=== PATIENT | male | born 1965 | race Caucasian/White ===

== ENCOUNTER 2023-06-16 08:13 | Emergency (ER) | payer BC ==
[2023-06-16] VITALS (15 sets, daily range): BP systolic 117–139; BP diastolic 83–102
[~2023-06-16] VITALS: Ht 182.9 cm; Wt 82.5 kg
[2023-06-16] MEDS ORDERED: ENALAPRIL5 MG PO (08:57)
[2023-06-16] MEDS ORDERED: AMLODIPINE BESYL5 MG PO (08:58)
[2023-06-16] MEDS ORDERED: XANAX0.25 MG PO (08:59)
[2023-06-16] MEDS ORDERED: LORTAB 1010 MG PO (09:00)
[2023-06-16 09:45] LABS: BASO% 0.6 % (0-3); EOS% 1.5 % (0-8); HEMATOCRIT 47.3 % (39.0-50.0); HEMOGLOBIN 15.6 g/dl (14.0-18.0); LYMPH% 28.5 % (15-41); MEAN CORPUSCULAR HGB 29.7 pG CALC (26.0-32.0); MONO% 7.1 % (2-13); NEUT# 3.26 thou/uL (1.82-7.42); NEUT% 62.3 % (42-76); RED BLOOD COUNT 5.25 mill/uL (4.70-6.10)
[2023-06-16 09:52] LABS: MEAN CELL VOLUME 90.1 fL CALC (80.0-100.0)
[2023-06-16 10:00] LABS: ALBUMIN 4.5 g/dL (3.2-5.0); ALKALINE PHOSPHATASE 64 u/l (38-126); ANION GAP 13 (6-22 (CALC)); BUN 20 mg/dL (9-20); BUN/CREATININE RATIO 21 (12-20 (CALC)); CARBON DIOXIDE 29 mmol/l (22-30); CHLORIDE 104 mmol/l (95-108); CREATININE 0.9 mg/dL (0.7-1.3); GFR FOR AFR.AMER. > 60 ML/MIN (>=60 (CALC)); GFR OTHER RACES > 60 ML/MIN (>=60 (CALC)); POTASSIUM 4.6 mmol/l (3.5-5.1); SGOT/AST 32 u/l (17-59); SODIUM 140 mmol/l (137-146); TOTAL PROTEIN 7.5 g/dL (6.3-8.2)
[2023-06-16 10:01] LABS: BILIRUBIN, TOTAL 0.7 mg/dL (0.2-1.3)
== END 2023-06-16 11:50 | disposition home or self-care (01) | DRG 310 ==
LOC: ED 08:13
PROVIDERS: Family Medicine
DX: R00.0 Tachycardia, unspecified (principal); R91.8 Other nonspecific abnormal finding of lung field; Z72.0 Tobacco use